=== PATIENT | female | born 1985 | race Caucasian/White ===

== ENCOUNTER → 2017-12-20 11:53 | Outpatient (CLI) | payer OTHER, SELFPAY ==
[2017-12-20 14:33] LABS: Group B Strep DNA By PCR Negative (Negative); Internal Control PASS; Probe Check PASS; Specimen Processing Control PASS
== END ==
PROVIDERS: Visit Provider Obstetrics & Gynecology
DX: Z36.85 Encounter for antenatal screening for Streptococcus B (principal)
CPT/HCPCS: 87081; 87653

== ENCOUNTER 2018-01-14 10:15 | Inpatient (IN) | payer SELFPAY ==
[2018-01-14 09:14] VITALS: BMI 32.2
[2018-01-14] MEDS: Lactated Ringers 1,000 ML 50 ML IV ×2 (10:00→14:54)
[2018-01-14] MEDS: 0.9% Saline Lock 10 ML Syringe IV (10:00)
[2018-01-14 10:50] LABS: Hematocrit 36.1 % (37-47); Hemoglobin 11.3 g/dl (12.0-15.0); Mean Corp Hgb Conc 31.3 g/gl (32-36); Mean Corpuscular Hgb 27.5 pg (27.0-32.0); Mean Corpuscular Volume 87.8 fL (81-99); Mean Platelet Vol. 9.9 fl (6.2-12.0); Platelet Count 146 K/mm3 (150-450); RBC Distribution Width CV 15.7 % (11.6-14.6); RBC Distribution Width SD 50.4 fl (35.1-43.9); Red Blood Count 4.11 M/mm3 (4.2-5.4); White Blood Count 6.8 K/mm3 (4.4-11.0)
[2018-01-14 10:53] LABS: Scan Indicated on CBC? Y/N NO
[2018-01-14 14:06] LABS: Chlamydia Trachomatis by PCR Negative (Negative); Neisserai gonorrhoeae by PCR Negative (Negative); Probe Check PASS; Sample Adequacy Control PASS; Specimen Processing Control PASS
[2018-01-14 15:39] LABS: HIV - WCH Non-Reactive (Nonreactive)
[2018-01-14] MEDS: Oxytocin 30 units/NS 500 ml 30 UNITS/500 ML IV.SOLN IV (17:15)
[2018-01-14] MEDS: fentaNYL-bupivacaine (epidural) 100 ML BAG EPIDURAL (18:00)
[2018-01-14] MEDS: Oxytocin 30 units/NS 500 ml 30 UNITS/500 ML IV.SOLN 334 UNITS IV (18:30)
--- NOTE | 2018-01-14 18:44 | PCM.OB.VAG ---
Vaginal Delivery Maternal Presentation: Active Labor Amniotic Membrane Rupture Type: Artificial Amniotic Fluid Description: Moderate meconium Final MICHAEL: 01/13/18 Final MICHAEL Source: US <20 weeks Gestational age: 40 Weeks and 1 Days [place] doctor who attended delivery (if requested by OB): Oneyda Arce - Moderate MSF Date of Procedure: 01/14/18 Pre-Operative Diagnosis: IUP, Prior Post-Operative Diagnosis: IUP, Prior Surgery/ Procedure Performed: Spontaneous Vaginal Delivery, - - Type of Anesthesia: Epidural Description of Procedure: Spontaneous vaginal delivery of a viable female with Apgars of 9/9 from an occiput anterior presentation with moderately meconium stained amniotic fluid and normal three-vessel placenta. Cord around the neck ?1 tight. No episiotomy. Second-degree midline laceration repaired with 3-0 Rapide suture under epidural anesthesia. Sponge counts okay. Delivery physician: Tomas Truong MD. Presentation: Vertex Placental Delivery Description: Spontaneous Placenta Disposition: [facility] Cord Vessel Description: 3 Vessels Cord Entanglement: Around neck x 1, tight Estimated Blood Loss: 250 cc A gender: Female (1 minute): 9 (5 minute): 9 Episiotomy Description: None Laceration: Midline, Perineal Extension/lac, 2nd degree Medications given after delivery: IV Pitocin Complications: None
--- NOTE | 2018-01-14 18:49 | OP.PCM_ITS ---
Vaginal Delivery Maternal Presentation: Active Labor Amniotic Membrane Rupture Type: Artificial Amniotic Fluid Description: Moderate meconium Final MICHAEL: 01/13/18 Final MICHAEL Source: US <20 weeks Gestational age: 40 Weeks and 1 Days [place] doctor who attended delivery (if requested by OB): Oneyda Arce - Moderate MSF Date of Procedure: 01/14/18 Pre-Operative Diagnosis: IUP, Prior Post-Operative Diagnosis: IUP, Prior Surgery/ Procedure Performed: Spontaneous Vaginal Delivery, - - Type of Anesthesia: Epidural Description of Procedure: Spontaneous vaginal delivery of a viable female with Apgars of 9/9 from an occiput anterior presentation with moderately meconium stained amniotic fluid and normal three-vessel placenta. Cord around the neck ?1 tight. No episiotomy. Second-degree midline laceration repaired with 3-0 Rapide suture under epidural anesthesia. Sponge counts okay. Delivery physician: Tomas Truong MD. Presentation: Vertex Placental Delivery Description: Spontaneous Placenta Disposition: [facility] Cord Vessel Description: 3 Vessels Cord Entanglement: Around neck x 1, tight Estimated Blood Loss: 250 cc Infant A gender: Female (1 minute): 9 (5 minute): 9 Episiotomy Description: None Laceration: Midline, Perineal Extension/lac, 2nd degree Medications given after delivery: IV Pitocin Complications: None
--- NOTE | 2018-01-14 18:50 | DCINST_ITS ---
Discharge Diet: No Restrictions Discharge Activity: May Shower, May Take a Tub Bath May resume sexual activity in: 4-6 weeks Additional Activity Instructions:: Nothing in the vagina for 4-6 weeks. You may return to work/school in 6 weeks. Call your doctor if you observe: Fever of 101 or Higher, Inability to urinate, Inability to have a bowel movement, Using more than one pad per hour Additional Instructions: If you experience any of the following, contact your healthcare provider. * Bleeding that soaks a pad every hour for 2 hours * Unrelieved incision or abdominal pain * Swelling, redness, discharge or bleeding from your incision or episiotomy site * Your incision begins to separate * Problems urinating (including inability to urinate or burning while urinating) . * Visual changes * Severe headache * Flu-like symptoms * Pain or redness in one of both of your breasts * Pain, warmth, tenderness or swelling in your legs, especially the calf area * Frequent nausea and vomiting * Symptoms of depression or anxiety If you experience any of the following, call 911 or go to the nearest Emergency Room. * Chest pain * Problems breathing * Seizure activity * Partial or complete paralysis of a body part, slurred speech, weakness or drooping of the face, or a sudden inability to walk or hold your balance Allergies/Adverse Reactions: Allergies No Known Allergies Allergy (Verified 01/14/18 09:15) Medications to take at Discharge Pnv No.122/Iron/Folic Acid [ Multi Tablet] 1 tab PO DAILY 01/14/18 Please Follow Up With: Tomas Truong MD - [phone] When: Call to make an appointment with your doctor in 6 weeks. Primary Care Physician: Car Ball MD [Primary Care Provider] - Test Results: Test results from this visit will be discussed in further detail at your follow- up appointment, if applicable.
--- NOTE | 2018-01-14 18:50 | PCM.DCVAG ---
Discharge Diet: No Restrictions Discharge Activity: May Shower, May Take a Tub Bath May resume sexual activity in: 4-6 weeks Additional Activity Instructions:: Nothing in the vagina for 4-6 weeks. You may return to work/school in 6 weeks. Call your doctor if you observe: Fever of 101 or Higher, Inability to urinate, Inability to have a bowel movement, Using more than one pad per hour Additional Instructions: If you experience any of the following, contact your healthcare provider. Bleeding that soaks a pad every hour for 2 hours Unrelieved incision or abdominal pain Swelling, redness, discharge or bleeding from your incision or episiotomy site Your incision begins to separate Problems urinating (including inability to urinate or burning while urinating). Visual changes Severe headache Flu-like symptoms Pain or redness in one of both of your breasts Pain, warmth, tenderness or swelling in your legs, especially the calf area Frequent nausea and vomiting Symptoms of depression or anxiety If you experience any of the following, call 911 or go to the nearest Emergency Room. Chest pain Problems breathing Seizure activity Partial or complete paralysis of a body part, slurred speech, weakness or drooping of the face, or a sudden inability to walk or hold your balance Allergies/Adverse Reactions: Allergies No Known Allergies Allergy (Verified 01/14/18 09:15) Medications to take at Discharge Pnv No.122/Iron/Folic Acid [ Multi Tablet] 1 tab PO DAILY 01/14/18 Please Follow Up With: Tomas Truong MD - [phone] When: Call to make an appointment with your doctor in 6 weeks. Primary Care Physician: Car Ball MD [Primary Care Provider] - Test Results: Test results from this visit will be discussed in further detail at your follow-up appointment, if applicable.
[2018-01-14] MEDS: Oxytocin 30 units/NS 500 ml 30 UNITS/500 ML IV.SOLN 167 UNITS IV (19:00)
[2018-01-14 20:45] VITALS: BP 114/61; PULSE 66; RESP 18; TEMP 36.6
--- NOTE | 2018-01-14 21:26 | NURSING ---
At 2049 pt up to bathroom, attempted to void and then performed jack care. While up, pt had several clots from quarter to half dollar size. While voiding, pt passed grapefruit sized flat clot. Fundus firm and bleeding small afterward. Pt tolerated activity well.
[2018-01-15 00:16] VITALS: BP 139/64; PULSE 72; RESP 16; TEMP 36.7
[2018-01-15 03:52] VITALS: BP 123/64; PULSE 68; RESP 18; TEMP 36.4
[2018-01-15] MEDS: Acetaminophen 500 MG Tablet 1000 MG PO (04:01)
--- NOTE | 2018-01-15 07:50 | PCM.PN.OB ---
Subjective: Patient without complaints. Claims minimal vaginal bleeding. Bottlefeeding. Wants to go home today if possible. - Physical Exam Vital Signs Temp Pulse Resp BP 97.6 F L 68 18 123/64 H 01/15/18 03:52 01/15/18 03:52 01/15/18 03:52 01/15/18 03:52 Oxygen Delivery Method Room Air Weight: 199 lb 11.821 oz Body Mass Index (BMI) 32.2 Intake and Output for Last 24 Hours 01/13/18 01/14/18 01/15/18 23:59 23:59 23:59 Intake Total 2101 / 2101 Output Total 400 / 400 800 / 800 Balance 1701 / 1701 -800 / -800 Laboratory Tests Past 24 Hrs 01/14/18 01/14/18 01/14/18 10:00 10:00 11:45 WBC 6.8 RBC 4.11 L Hgb 11.3 L Hct 36.1 L MCV 87.8 MCH 27.5 MCHC 31.3 L RDW 15.7 H RDW Differential 50.4 H Plt Count 146 L MPV 9.9 Chlam trachomat DNA PCR Negative HIV 1&2 Antibody N.gonorrhoeae DNA (PCR) Negative Blood Type A POSITIVE Antibody Screen NEGATIVE 01/14/18 14:10 WBC RBC Hgb Hct MCV MCH MCHC RDW RDW Differential Plt Count MPV Chlam trachomat DNA PCR HIV 1&2 Antibody Non-Reactive N.gonorrhoeae DNA (PCR) Blood Type Antibody Screen Medical Necessity - Tobacco Use Smoking Status: Never smoker Assessment/Plan Doing well status post vaginal delivery day 1. Will release to home with routine instructions if baby is able to be released.
[2018-01-15 08:01] VITALS: BP 132/71; PULSE 70; RESP 16; TEMP 36.6
[2018-01-15 12:29] VITALS: BP 127/76; PULSE 70; RESP 18; TEMP 36.2
[2018-01-15 16:00] VITALS: BP 133/72; PULSE 60; RESP 16; TEMP 36.8
[2018-01-15 19:45] VITALS: BP 133/72; PULSE 60; RESP 16; TEMP 36.8
== END 2018-01-15 19:55 | disposition home or self-care (01) | DRG 775 ==
LOC: WPOUT 10:22
PROVIDERS: Admitting Provider Obstetrics & Gynecology; Family Provider Family Medicine; PCP Family Medicine; Visit Provider Obstetrics & Gynecology
DX: O34.211 Maternal care for low transverse scar from previous cesarean delivery (principal); O70.1 Second degree perineal laceration during delivery; O69.1XX0 Labor and delivery complicated by cord around neck, with compression, not applicable or unspecified; O77.0 Labor and delivery complicated by meconium in amniotic fluid; Z3A.40 40 weeks gestation of pregnancy; Z37.0 Single live birth
CPT/HCPCS: 59025; 59050; 85027; 86703; 86850; 86900; 87491; 87591; 99218; J7120; A4216; G0378

== ENCOUNTER 2021-08-02 15:55 | Outpatient (CLI) | payer OTHER, SELFPAY ==
[2021-08-02 17:10] LABS: Absolute Lymphocyte Count 1.66 X10^3/uL (0.83-4.51); Basophil# 0.03 X10^3/uL; Basophil% 0.4 % (0-1); Eosinophil# 0.13 X10^3/uL; Eosinophils% 1.8 % (0-5); Hematocrit 35.7 % (37-47); Hemoglobin 11.5 g/dL (12.0-15.0); Lymphocyte # 1.66 X10^3/ul (0.83-4.51); Lymphocyte % 22.4 % (19-41); Mean Corp Hgb Conc 32.2 g/dL (32-36); Mean Corpuscular Hgb 27.5 pg (27.0-32.0); Mean Corpuscular Volume 85.4 fL (81-99); Mean Platelet Vol. 9.7 fl (6.2-12.0); Monocyte# 0.46 X10^3/uL; Monocyte% 6.2 % (0-10); NRBC Flagged by Analyzer 0 % (0-5); Neutrophil # 5.04 X10^3/uL (2.7-7.7); Neutrophil % 68.1 % (47-70); Platelet Count 176 K/mm3 (150-450); RBC Distribution Width CV 15.9 % (11.6-14.6); RBC Distribution Width SD 49.4 fl (35.1-43.9); Red Blood Count 4.18 M/mm3 (4.2-5.4); White Blood Count 7.4 K/mm3 (4.4-11.0)
[2021-08-03 08:54] LABS: HIV - WCH Non-Reactive (Nonreactive); Hepatitis B Surface Antigen Non-Reactive (Nonreactive); Hepatitis C Antibody Non-Reactive (Nonreactive); Rubella IgG Reactive (Nonreactive); Syphilis Antibodies Non-reactive
[2021-08-05 08:09] LABS: Chlamydia By Nucleic Acid AMP Negative (Negative)
[2021-08-05 17:52] LABS: Gonococcus By Nucleic Acid AMP Negative (Negative)
[2021-08-08 13:21] LABS: HPV APTIMA, High Risk Negative (Negative)
== END 2021-08-02 23:59 | disposition short-term general hospital (02) ==
LOC: WOBLAB 15:56
PROVIDERS: PCP Family Medicine; Visit Provider Obstetrics & Gynecology
DX: Z34.82 Encounter for supervision of other normal pregnancy, second trimester (principal); Z12.4 Encounter for screening for malignant neoplasm of cervix; Z11.3 Encounter for screening for infections with a predominantly sexual mode of transmission
CPT/HCPCS: 36415; 85025; 86703; 86762; 86780; 86803; 87086; 87088; 87340; 87491; 87591; 87624; 88175; G0145

== ENCOUNTER 2021-10-20 09:04 | Outpatient (CLI) | payer OTHER, SELFPAY ==
[2021-10-20 09:32] LABS: Hematocrit 31.9 % (37-47); Hemoglobin 10.6 g/dL (12.0-15.0); Mean Corp Hgb Conc 33.2 g/dL (32-36); Mean Corpuscular Hgb 29.5 pg (27.0-32.0); Mean Corpuscular Volume 88.9 fL (81-99); Mean Platelet Vol. 9.3 fl (6.2-12.0); Platelet Count 168 K/mm3 (150-450); RBC Distribution Width CV 15.9 % (11.6-14.6); RBC Distribution Width SD 52.2 fl (35.1-43.9); Red Blood Count 3.59 M/mm3 (4.2-5.4); White Blood Count 7.9 K/mm3 (4.4-11.0)
[2021-10-20 09:38] LABS: Glucose Challenge Gest 1H 50g 74 mg/dL (70-140)
== END 2021-10-20 23:59 | disposition home or self-care (01) ==
LOC: WOBLAB 09:04
PROVIDERS: PCP Family Medicine; Referring Provider Student in an Organized Health Care Education/Training Program; Visit Provider Student in an Organized Health Care Education/Training Program
DX: Z34.83 Encounter for supervision of other normal pregnancy, third trimester (principal)
CPT/HCPCS: 36415; 82950; 85027

== ENCOUNTER → 2022-01-10 | Outpatient (CLI) | payer OTHER, SELFPAY | END | disposition home or self-care (01) | LOC: LABSPEC 11:04 | PROVIDERS: PCP Family Medicine; Visit Provider Obstetrics & Gynecology | DX: Z36.85 Encounter for antenatal screening for Streptococcus B (principal) | CPT/HCPCS: 87081 ==

== ENCOUNTER → 2022-01-26 | Outpatient (CLI) | payer SELFPAY, OTHER ==
--- NOTE | 2022-01-26 10:04 | PCM.HP.BLA ---
History and Physical Date of Admission: 01/26/22 HPI: 36-year-old G6 P5 at 39/2 weeks, MICHAEL 01/31/2022 by LMP, admitted for induction of labor for advanced maternal age. Patient is for trial of labor after section. Denies regular contractions, leaking of fluid, vaginal bleeding. Reports movement. Denies headache, vision changes, chest pain or shortness of breath, nausea or vomiting, diarrhea or constipation. complicated by: Grand multiparity, advanced maternal age, prior successful vaginal after section for trial of labor MANAGER CONVENTION HISTORY: 1 01/25/09 Male 38 wks 12 hrs Vag 2 03/23/10 Male 39 wks 12 hrs Vag 3 01/18/12 Female 39 wks 12 hrs Vag 4 07/15/14 Female 39 wks 0 hrs C-Sect 5 01/14/18 Female 40 wks 12 hrs Medical history: Denies Surgical history: 1. section 2014 Family history: Noncontributory Social history: Denies tobacco, alcohol, drug use Allergies: No known drug allergies Medications: vitamin Review of system: Negative otherwise stated above Physical exam: Vitals: pending General: No acute distress HEENT: Normocephalic/atraumatic, PERRLA Cardiac: Regular rate and rhythm Lungs: Clear to auscultation bilaterally Abdomen: Soft, nontender, gravid Extremities: Minimal edema Neurologic: No focal deficits cranial nerves II through XII grossly intact Musculoskeletal: Strength 5 out of 5 throughout all extremities Cervical exam: pending labs: GBS -7/5 Hepatitis B/hepatitis C negative/negative HIV negative Syphilis nonreactive Rubella immune A positive FHR: pending [place]: Assessment/plan:36-year-old G6, P5 at 39/2 weeks, MICHAEL 01/31/2022 by LMP, admitted for induction of labor for advanced maternal age. complicated by: Grand multiparity, advanced maternal age, prior successful vaginal after section for trial of labor Admit for induction of labor. Plan for Pitocin and artificial rupture of membranes Plan for trial of labor after section. Patient aware of risks and benefits and alternatives. Risks include but are not limited to: Less than 1% risk of uterine rupture which could result in maternal hemorrhage or hysterectomy, permanent neurologic deficits or , risk of failure of trial of labor or need for section. Patient has had prior successful . All questions answered, agrees to continue with induction of labor.
[2022-01-26 14:46] VITALS: BP 125/60; PULSE 75; TEMP 36.4
[2022-01-26 15:34] VITALS: BP 114/68; PULSE 71; PULSE 75; TEMP 36.4; O2SAT 99
== END | disposition home or self-care (01) ==
LOC: WPOUT 14:38
PROVIDERS: PCP Family Medicine; Visit Provider Obstetrics & Gynecology
DX: O09.523 Supervision of elderly multigravida, third trimester (principal); O34.219 Maternal care for unspecified type scar from previous cesarean delivery
CPT/HCPCS: 59025; 59050; 99218; G0378

== ENCOUNTER 2022-01-27 07:00 | Inpatient (IN) | payer SELFPAY, OTHER ==
[2022-01-27] VITALS (29 sets, daily range): BP systolic 109–133; BP diastolic 56–86; PULSE 56–78; RESP 16; TEMP 35.9–36.7; O2SAT 99–100; BMI 31.0
--- NOTE | 2022-01-27 07:45 | PCM.HP.BLA ---
History and Physical Date of Admission: 01/27/22 Chief complaint: Induction of labor at term History of present illness: 36-year-old G6, P5 at 39/3 weeks, MICHAEL 01/31/2022 by LMP, admitted for induction of labor for advanced maternal age. Denies regular contractions, leaking of fluid, vaginal bleeding.? Reports movement.? Denies headache, vision changes, chest pain or shortness of breath, nausea or vomiting, diarrhea or constipation. complicated by: Grand multiparity, advanced maternal age, prior successful vaginal after section for trial of labor [employer] HISTORY: ? ? 1 ? 01/25/09? Male? ? ? 38 wks? ? 12 hrs? ? Vag ? 2 ? 03/23/10? Male? ? ? 39 wks? ? 12 hrs? ? Vag ? 3 ? 01/18/12? Female? ? 39 wks? ? 12 hrs? ? Vag ? 4 ? 07/15/14? Female? ? 39 wks? ? 0 hrs ? ? C-Sect? 5 ? 01/14/18? Female? ? 40 wks? ? 12 hrs? ? ? Medical history: Denies Surgical history: 1.? section 2014 Family history: Noncontributory Social history: Denies tobacco, alcohol, drug use Allergies: No known drug allergies Medications: vitamin Review of system: Negative otherwise stated above Physical exam: Vitals: pending General: No acute distress HEENT: Normocephalic/atraumatic, PERRLA Cardiac: Regular rate and rhythm Lungs: Clear to auscultation bilaterally Abdomen: Soft, nontender, gravid Extremities: Minimal edema Neurologic: No focal deficits cranial nerves II through XII grossly intact Musculoskeletal: Strength 5 out of 5 throughout all extremities labs: GBS -7/ Hepatitis B/hepatitis C negative/negative HIV negative Syphilis nonreactive Rubella immune A positive Assessment/plan: 36-year-old G6 P5 at 39/3 weeks, MICHAEL 01/31/2022 by LMP, admitted for induction of labor for advanced maternal age.? [place] induction. Admit for induction of labor.? Plan for Pitocin and artificial rupture of membranes Plan for trial of labor after section.? Patient aware of risks and benefits and alternatives.? Risks include but are not limited to: Less than 1% risk of uterine rupture which could result in maternal hemorrhage or hysterectomy, permanent neurologic deficits or , risk of failure of trial of labor or need for section.? Patient has had prior successful .? All questions answered, agrees to continue with induction of labor.
[2022-01-27] MEDS: Lactated Ringers 1,000 ML 50 ML IV (07:55)
--- NOTE | 2022-01-27 08:31 | PCM.PN.OB ---
Subjective Subjective Patient resting comfortably in bed Objective Data Objective Data Vital Signs: Vital Signs Temp Pulse BP Pulse Ox 96.6 F L 78 120/68 100 01/27/22 07:16 01/27/22 07:16 01/27/22 07:16 01/27/22 07:16 Weight: 198 lb 3.129 oz Body Mass Index (BMI) 31.0 Physical Exam Const alert, oriented x3, no apparent distress, average body habitus, healthy appearing and well nourished HEENT normocephalic and moist oral mucous membranes Eyes PERRL Neck full ROM Resp normal respiratory effort, no retractions and no use of accessory muscles GI GI Narrative: Soft, nontender, gravid Narrative: Cervical exam /-3. AROM clear fluid Extremity normal to inspection, full ROM and no clubbing, cyanosis or edema Psych mental status grossly normal, affect normal, speech normal and activity/motor behavior normal Assessment & Plan (1) : PLAN: Patient seen and examined. AROM clear fluid. Continue to titrate Pitocin
[2022-01-27 08:55] LABS: Absolute Lymphocyte Count 1.65 X10^3/uL (0.83-4.51); Basophil# 0.02 X10^3/uL; Basophil% 0.3 % (0-1); Eosinophil# 0.11 X10^3/uL; Eosinophils% 1.7 % (0-5); Hematocrit 32.6 % (37-47); Hemoglobin 10.3 g/dL (12.0-15.0); Lymphocyte # 1.65 X10^3/ul (0.83-4.51); Lymphocyte % 25.7 % (19-41); Mean Corp Hgb Conc 31.6 g/dL (32-36); Mean Corpuscular Hgb 27.7 pg (27.0-32.0); Mean Corpuscular Volume 87.6 fL (81-99); Mean Platelet Vol. 9.8 fl (6.2-12.0); Monocyte# 0.51 X10^3/uL; Monocyte% 7.9 % (0-10); NRBC Flagged by Analyzer 0 % (0-5); Neutrophil # 4.03 X10^3/uL (2.7-7.7); Neutrophil % 62.7 % (47-70); Platelet Count 137 K/mm3 (150-450); RBC Distribution Width CV 16.8 % (11.6-14.6); RBC Distribution Width SD 53.8 fl (35.1-43.9); Red Blood Count 3.72 M/mm3 (4.2-5.4); White Blood Count 6.4 K/mm3 (4.4-11.0)
[2022-01-27] MEDS: Oxytocin 30 units/NS 500 ml 30 UNITS/500 ML IV.SOLN IV (09:23)
[2022-01-27] MEDS: Oxytocin 30 units/NS 500 ml 30 UNITS/500 ML IV.SOLN 334 UNITS IV (14:51)
[2022-01-27] MEDS: Methylergonovine 0.2 MG/ML Ampul IM (15:05)
--- NOTE | 2022-01-27 15:08 | OP.PCM_ITS ---
Vaginal Delivery Findings Description of Procedure: Normal spontaneous vaginal delivery of a viable male , vertex SHERRILL. Head and shoulders delivered with ease. Cord cut and clamped. Baby handed off to patient. Placenta delivered via cord traction and fundal massage. Second- degree midline perineal laceration noted and repaired in typical fashion, lidocaine 20 cc. EBL 300 cc Apgars 8/9
[2022-01-27] MEDS: 0.9% Saline Lock 10 ML Syringe IV (16:25)
[2022-01-27] MEDS: Ibuprofen 600 MG Tablet PO (16:26)
[2022-01-28 00:40] VITALS: BP 108/52; PULSE 60; RESP 16; TEMP 36.8
[2022-01-28] MEDS: Ibuprofen 600 MG Tablet PO (04:32)
[2022-01-28 04:37] VITALS: BP 109/62; PULSE 75; RESP 16; TEMP 36.2
[2022-01-28 07:45] VITALS: BP 116/45; PULSE 75; RESP 16; TEMP 36.4
[2022-01-28] MEDS: Prenatal Vits Tablet 1 TABLET PO (10:02)
--- NOTE | 2022-01-28 11:18 | PN.OBGYN_ITS ---
Subjective Subjective No overnight complaints Objective Data Objective Data Vital Signs: Vital Signs Temp Pulse Resp BP Pulse Ox O2 Del Method 97.6 F L 75 16 116/45 L 100 Room Air 01/28/22 07:45 01/28/22 07:45 01/28/22 07:45 01/28/22 07:45 01/27/22 16:38 01/28/22 04:37 Oxygen Delivery Method Room Air Weight: 198 lb 3.129 oz Body Mass Index (BMI) 31.0 Intake & Output: Intake and Output for Last 24 Hours 01/26/22 01/27/22 01/28/22 23:59 23:59 23:59 Intake Total 1602.59 / 1602.59 Output Total 1650 / 1650 Balance -47.41 / -47.41 Lab / Micro Data Result Diagrams: 01/27/22 08:25 Micro: Microbiology 01/27/22 08:43 Nasal Secretion SARS-CoV-2 Antigen (Rapid) - Final Physical Exam Const alert, oriented x3, no apparent distress, average body habitus, healthy appearing and well nourished HEENT normocephalic Eyes PERRL Resp normal respiratory effort, no retractions and no use of accessory muscles GI GI Narrative: Soft, nontender, uterus firm below umbilicus Extremity normal to inspection, full ROM and no clubbing, cyanosis or edema Neuro moves all extremities and no focal motor deficits Psych mental status grossly normal, affect normal, speech normal and activity/motor be havior normal Assessment & Plan (1) Vaginal delivery: PLAN: day 1 status post . Breast-feeding. 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
--- NOTE | 2022-01-28 11:18 | DCINST_ITS ---
Discharge Instructions Diet Discharge Diet: No restrictions Activity Discharge Activity: Return to Normal Activity, May Drive and May Shower May resume sexual activity in: 4-6 weeks Weight Bearing Status: Weight bearing as tolerated Dressing / Incision Call your doctor if your incision/area has: Continuous Slow Oozing and Foul Smelling Discharge Call your doctor if you observe: Fever of 101 or Higher, Shortness of breath and Chest pain Follow Up Care Please Follow Up With: Jose Guadalupe Wong MD When: Follow-up 4 to 6 weeks Test Results: Test results from this visit will be discussed in further detail at your follow- up appointment, if applicable. Discharge Plan Admission Admit Date/Time: 01/27/22 07:00 Attending Provider: Jose Guadalupe Wong Primary Care Provider: Car Ball Discharge Orders/Prescriptions Prescriptions: No Action Multi 1 EACH tablet 1 tab PO DAILY Referrals / Follow Up: Car Ball MD [Primary Care Provider] - Disposition Discharge Orders: Discharge Patient (Routine); Ordered 01/28/22 Ordered By: Dr. Jose Guadalupe Wong
[2022-01-28 13:51] VITALS: BP 112/53; PULSE 63; RESP 16; TEMP 36.4
== END 2022-01-28 17:02 | disposition home or self-care (01) | DRG 807 ==
PROVIDERS: Admitting Provider Obstetrics & Gynecology; PCP Family Medicine; Referring Provider Obstetrics & Gynecology; Visit Provider Obstetrics & Gynecology
DX: O34.219 Maternal care for unspecified type scar from previous cesarean delivery (principal); Z37.0 Single live birth; O70.1 Second degree perineal laceration during delivery; Z3A.39 39 weeks gestation of pregnancy
CPT/HCPCS: 59025; 59050; 85025; 86850; 86900; 86901; 87426; 99218; J7120; A4216; G0378